=== PATIENT | male | born 1985 | race Two or more races ===

== ENCOUNTER 2018-04-04 08:07 | Emergency (ER) | payer OTHER, MEDICAID ==
[~2018-04-04] VITALS: Ht 172.7 cm; Wt 86.2 kg
[2018-04-04 08:44] LABS: Urine Bacteria NONE SEEN /hpf (None Seen); Urine Blood Negative /uL (Negative); Urine Mucus FEW (None Seen); Urine Specific Gravity 1.034 (1.001-1.035); Urine WBC 1 /hpf (0 - 3)
[2018-04-04] MEDS ORDERED: LORazepam 0.5 MG TAB PO ONE (09:00)
[2018-04-04 09:01] LABS: Basophils # (auto) 0.1 uL; Basophils % (auto) 0.6 % (0.0-2.0); Eosinophils # (auto) 0.1 uL; Eosinophils % (auto) 0.5 % (0.0-7.0); Hematocrit 45.5 % (41.0-53.0); Hemoglobin 15.4 g/dL (13.5-17.5); Lymphocytes # (auto) 3.1 uL; Lymphocytes % (auto) 29.7 % (10.0-50.0); Mean Corpuscular Hemoglobin 30.5 pg (28.0-32.0); Mean Corpuscular Hgb Conc. 33.9 g/dL (32.0-36.0); Mean Corpuscular Volume 90.1 fL (80.0-100.0); Monocytes # (auto) 0.7 uL; Monocytes % (auto) 6.8 % (0.0-12.0); Neutrophils # (auto) 6.4 uL; Neutrophils % (auto) 62.4 % (37.0-80.0); Platelet Count (auto) 262 10^3/uL (140-450); Red Blood Cells 5.05 10^6/uL (4.5-5.90); Red Cell Distribution Width 12.9 % (11.8-14.3); White Blood Cell 10.3 10^3/uL (4.4-10.8)
[2018-04-04 09:02] LABS: Alcohol, Urine < 3.0 mg/dL (0-5); Amphetamine Screen, Urine NEGATIVE (NEGATIVE); Barbiturate Scree,Urine NEGATIVE (NEGATIVE); Benzodiazephine Screen, Urine NEGATIVE (NEGATIVE); Cannabinoid Screen, Urine NEGATIVE (NEGATIVE); Cocaine Screen, Urine NEGATIVE (NEGATIVE); Opiate Scree,Urine NEGATIVE (NEGATIVE); Phencyclidine Screen, Urine NEGATIVE (NEGATIVE)
[2018-04-04 09:16] LABS: Amylase 35 U/L (25-115); Lipase 82 U/L (73-393)
[2018-04-04 09:24] LABS: Anion Gap 9 (5-15); BUN/Creatinine Ratio 14.6; Blood Urea Nitrogen 12 mg/dL (7-18); Carbon Dioxide 25 mmol/L (21-32); Chloride 104 mmol/L (98-107); GFR African American 142 mL/min; GFR Non-African American 117 mL/min; Glucose 107 mg/dL (74-106); Potassium 3.5 mmol/L (3.5-5.1); Sodium 138 mmol/L (136-145)
[2018-04-04 09:25] LABS: Alanine Aminotransferase 22 U/L (16-61); Alkaline Phosphatase 115 U/L (45-117); Aspartate Aminotransferase 17 U/L (15-37); Bilirubin, Total 0.7 mg/dL (0.2-1.0); Calcium 8.7 mg/dL (8.5-10.1); Magnesium 2.7 mg/dL (1.6-2.6); Total Protein 8.4 g/dL (6.4-8.2)
[2018-04-04 10:47] VITALS: BP 103/71
== END 2018-04-04 10:50 | disposition home or self-care (01) ==
LOC: ER 08:07
DX: F41.9 Anxiety disorder, unspecified (principal); Z88.1 Allergy status to other antibiotic agents
CPT/HCPCS: 36415; 71046; 80053; 80307; 81001; 82150; 83690; 83735; 84484; 85025; 93005

== ENCOUNTER 2018-04-25 04:29 | Emergency (ER) | payer MEDICAID, OTHER ==
[~2018-04-25] VITALS: Ht 167.6 cm; Wt 101.6 kg
[2018-04-25 04:39] VITALS: BP 122/84
== END 2018-04-25 08:20 | disposition left against medical advice (07) ==
LOC: ER 04:32
DX: T67.5XXA Heat exhaustion, unspecified, initial encounter (principal); Z53.21 Procedure and treatment not carried out due to patient leaving prior to being seen by health care provider; Y92.89 Other specified places as the place of occurrence of the external cause

== ENCOUNTER 2021-09-03 00:21 | Emergency (ER) | payer OTHER ==
[2021-09-03] MEDS ORDERED: ACETAMINOPHEN 325 MG TAB PO ONE (02:00)
[2021-09-03] MEDS ORDERED: ONDANSETRON HCL 4 MG/2 ML VIAL IV ONE (13:45)
[2021-09-03] MEDS ORDERED: MORPHINE SULFATE INJECTION 2 MG/ML SYRG IV ONE (13:45)
[2021-09-03 15:34] VITALS: BP 115/75
== END 2021-09-03 16:12 | disposition short-term general hospital (02) ==
LOC: ER 00:21 → EDBD 00:21 → ER 16:12
DX: S32.502A Unspecified fracture of left pubis, initial encounter for closed fracture (principal); S32.402A Unspecified fracture of left acetabulum, initial encounter for closed fracture; R41.2 Retrograde amnesia; F41.9 Anxiety disorder, unspecified; Z20.822 Contact with and (suspected) exposure to COVID-19; W18.39XA Other fall on same level, initial encounter; Y93.89 Activity, other specified; Y92.89 Other specified places as the place of occurrence of the external cause; Y99.8 Other external cause status
CPT/HCPCS: 36415; 70450; 71250; 72125; 73502; 73590; 74176; 87426; 93005; 96374; 96375; 99285; J2270; J2405

== ENCOUNTER 2025-07-09 22:09 | Emergency (ER) | payer OTHER ==
[~2025-07-09] VITALS: Ht 165.1 cm; Wt 82.0 kg
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
[2025-07-10] MEDS: OXYCODONE W/ ACETAMINOPHEN 5/325MG TABLET PO ONE (01:30)
[2025-07-10] MEDS: KETOROLAC TROMETH 60MG/2ML VIAL IM ONE (01:30)
[2025-07-10] MEDS ORDERED: TIZA-142 PO (02:09)
[2025-07-10] MEDS ORDERED: NABU-74 PO (02:09)
[2025-07-10 02:12] VITALS: BP 115/77; PULSE 90; RESP 17; TEMP 97.6; O2SAT 97
== END 2025-07-10 02:15 | disposition home or self-care (01) ==
LOC: EDBD 22:09 → ER 22:20
DX: S02.2XXA Fracture of nasal bones, initial encounter for closed fracture (principal); S01.511A Laceration without foreign body of lip, initial encounter; Z88.1 Allergy status to other antibiotic agents; Y08.89XA Assault by other specified means, initial encounter; Y93.89 Activity, other specified; Y92.89 Other specified places as the place of occurrence of the external cause; Y99.8 Other external cause status
CPT/HCPCS: 70486; 72040; 96372; 99285; J1885